=== PATIENT | female | born 1940 | race Two or more races ===

== ENCOUNTER 2021-04-09 09:00 | Inpatient (IN) | payer OTHER ==
[~2021-04-09] VITALS: Ht 154.9 cm; Wt 66.2 kg
[2021-04-16] MEDS ORDERED: PRAVASTATIN SOD40 MG PO (11:23)
[2021-04-16] MEDS ORDERED: CILOSTAZOL100 MG PO (11:24)
[2021-04-16] MEDS ORDERED: CALCIU PO (11:24)
[2021-04-16] MEDS ORDERED: PROTONIX20 MG PO (11:25)
[2021-04-16] MEDS ORDERED: ANASTROZOLE1 MG PO (11:26)
[2021-04-16] MEDS ORDERED: LANTU (11:26)
[2021-04-16] MEDS ORDERED: INTESTINEX680 M1 PO (11:27)
[2021-04-16] MEDS ORDERED: ZYRTEC10 MG PO (11:27)
[2021-04-19] MEDS ORDERED: ANTACID ULTRA400 MG (08:18)
[2021-04-19] MEDS ORDERED: 3 DAY VAGINAL25 GM (08:18)
[2021-04-19] MEDS ORDERED: SEMGLEE100 UNIT/1 (08:19)
[2021-04-19] MEDS ORDERED: ZINC OXIDE (08:19)
[2021-04-19] MEDS ORDERED: VOLTAREN ARTHRI20 GM (08:19)
[2021-04-23] MEDS ORDERED: HYOSCYAMINE0.125 M1 SL (13:37)
[2021-04-23] MEDS ORDERED: ULTRACET PO (13:38)
[2021-04-23] MEDS ORDERED: PROTONIX40 MG PO (13:38)
[2021-05-10] MEDS ORDERED: ULTRACET PO (08:28)
[2021-05-10] MEDS ORDERED: INTESTINEX680 M1 PO (08:28)
[2021-05-10] MEDS ORDERED: PROTONIX40 MG PO (08:28)
== END 2021-05-10 15:42 | disposition home or self-care (01) | DRG 329 ==
LOC: SURH 04-18 07:53 → O/R 04-18 07:53 → SURH 04-18 10:00
PROVIDERS: ADMIT Surgery; ATTEND Surgery
PROC: 07BC4ZX Excision of Pelvis Lymphatic, Percutaneous Endoscopic Approach, Diagnostic (ICD-10-PCS; 2021-04-18)
PROC: 0DTF4ZZ Resection of Right Large Intestine, Percutaneous Endoscopic Approach (ICD-10-PCS; principal; 2021-04-18 14:00)
PROC: 5A1D70Z Performance of Urinary Filtration, Intermittent, Less than 6 Hours Per Day (ICD-10-PCS; 2021-04-19)
PROC: 05PYX3Z Removal of Infusion Device from Upper Vein, External Approach (ICD-10-PCS; 2021-04-29)
PROC: 0WP8X3Z Removal of Infusion Device from Chest Wall, External Approach (ICD-10-PCS; 2021-04-29)
PROC: 02H633Z Insertion of Infusion Device into Right Atrium, Percutaneous Approach (ICD-10-PCS; 2021-04-29)
DX: C18.2 Malignant neoplasm of ascending colon (principal); N18.6 End stage renal disease; T80.211A Bloodstream infection due to central venous catheter, initial encounter; E11.22 Type 2 diabetes mellitus with diabetic chronic kidney disease; Z99.2 Dependence on renal dialysis; D63.1 Anemia in chronic kidney disease; F43.20 Adjustment disorder, unspecified; B95.2 Enterococcus as the cause of diseases classified elsewhere